=== PATIENT | male | born 1980 | race Caucasian/White ===

== ENCOUNTER 2024-07-22 14:45 | Emergency (ER) | payer OTHER ==
[~2024-07-22] VITALS: Ht 193 cm; Wt 136.1 kg
[2024-07-22 15:04] VITALS: BP 128/87; PULSE 68; RESP 16; TEMP 98; O2SAT 94
[2024-07-22] MEDS ORDERED: CYCL-711 PO (17:07)
[2024-07-22] MEDS ORDERED: MELO-176 PO (17:07)
[2024-07-22] MEDS: KETOROLAC 60 MG/2 ML VIAL IM ONE (17:33)
[2024-07-22] MEDS ORDERED: METH4TAB1 PO (18:04)
[2024-07-22] MEDS: DEXAMETHASONE 10 MG/ML VIAL IM ONE (18:14)
== END 2024-07-22 18:18 | disposition home or self-care (01) ==
LOC: MED 14:45
DX: S16.1XXA Strain of muscle, fascia and tendon at neck level, initial encounter (principal); M25.512 Pain in left shoulder; Z79.899 Other long term (current) drug therapy; V89.2XXA Person injured in unspecified motor-vehicle accident, traffic, initial encounter; Y93.89 Activity, other specified; Y92.89 Other specified places as the place of occurrence of the external cause; Y99.8 Other external cause status
CPT/HCPCS: 72050; 72110; 73030; 73502; 96372; 99284; J1100; J1885